=== PATIENT | male | born 1950 | race African-American/Black ===

== ENCOUNTER → 2018-04-02 | Outpatient (CLI) | payer MEDICARE ==
--- NOTE | 2018-04-02 12:17 | RADIOLOGY REPORT (SQ) ---
EXAM DESCRIPTION: U/S RETROPERITON (RENAL/AORTA) COMPLETED DATE/TIME: 04/02/2018 10:09 am REASON FOR STUDY: CKD (N18.9) N18.9 CHRONIC KIDNEY DISEASE, UNSPECIFIED COMPARISON: None. TECHNIQUE: Dynamic and static grayscale images acquired of the kidneys and bladder and recorded on P ACS. Additional selected color Doppler and spectral images recorded. LIMITATIONS: None. FINDINGS: RIGHT KIDNEY: The right kidney measures 8.3 cm in length. Mild diffuse increased echogen icity, likely related to the patient's history of medical renal disease. No solid or suspicious mass es. No hydronephrosis. No calcifications. LEFT KIDNEY: The left kidney measures 8.8 cm in length. Mild diffuse increased echogenicity, likely related to the patient's history of medical renal disease. No solid or suspicious masses. No hydron ephrosis. No calcifications. BLADDER: No masses. Bilateral ureteral jets are visualized. OTHER FINDINGS: No other significant finding. IMPRESSION: 1. Mild diffuse increased echogenicity of the kidneys likely related to the patient's h istory of medical renal disease. 2. No hydronephrosis. 3. Normal BLADDER ULTRASOUND. TECHNICAL DOCUMENTATION: JOB ID: [id number] [employer]- All Rights Reserved Reading location - IP/workstation name: [email or web address]
== END ==
LOC: RAD 09:25
PROVIDERS: ATTEND Internal Medicine
DX: N18.9 Chronic kidney disease, unspecified (principal)
CPT/HCPCS: 76770